=== PATIENT | female | born 2005 | race Caucasian/White ===

== ENCOUNTER 2025-04-14 20:54 | Emergency (ER) | payer OTHER, SELFPAY ==
[2025-04-14 21:00] VITALS: BP 118/68
[2025-04-14 21:27] LABS: Hematocrit 37.6 % (37.0-47.0); Hemoglobin 12.8 g/dL (12.0-16.0); Mean Corp Hgb Conc. 34.0 g/dL (33.0-37.0); Mean Corpuscular Volume 87.4 fL (81.0-99.0); Nucleated Red Blood Cells % 0 %; Platelet Count 267 10^3/uL (130-400); Red Cell Dist. Width 12.9 % (11.5-14.5); Urine Character Clear (Clear)
[2025-04-14 21:39] LABS: HCG, Serum Qualitative Screen Negative
[2025-04-14 21:41] LABS: ALT (SGPT) 19 U/L (0-35); AST (SGOT) 30 U/L (14-36); Albumin 4.6 g/dl (3.5-5.0); Alkaline Phosphatase 72 U/L (38-126); Blood Urea Nitrogen 11 mg/dl (7-17); Calcium 9.4 mg/dl (8.4-10.2); Carbon Dioxide 27 mmol/L (22-30); Chloride 102 mmol/L (98-107); Glucose 88 mg/dl (70-99); Lipase 38 U/L (23-300); Potassium 3.7 mmol/L (3.5-5.1); Sodium 137 mmol/L (135-145); Total Protein 7.6 g/dl (6.3-8.2); eGFR > 60.00
[2025-04-14 21:44] LABS: Urine Red Blood Cell 0-2 /HPF (0-2)
--- NOTE | 2025-04-14 23:30 | ED.GENMED ---
History of Present Illness
General
Chief Complaint: Abdominal Pain
Source: patient
Exam Limitations: none
Time Seen by Provider: 04/14/25 22:30
History of Present Illness
History of Present Illness:
19yoF with no significant past medical history presenting for evaluation of abdominal pain. Patient reports pain in the left side of her abdomen that started this morning. Pain has been constant throughout the day today. Pain is worse with
movement and coughing. Pain started to radiate to her left lower back while in the waiting room. She is also experiencing diarrhea. She denies any urinary symptoms, fevers, vomiting, hematochezia, vaginal discharge, vaginal bleeding. No
suspicious intake, recent travel, or sick contacts. 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 LMP about 1 week ago. No prior abdominal surgeries.
Phy Exam
General Physical Exam
General Presentation: well appearing and no apparent distress
General Skin: warm and dry
General Habitus: normal
General Mental: alert
ENT Exam
ENT Exam: normocephalic
Gastrointestinal Exam
Gastrointestinal Exam: soft, non distended and other (+Tenderness noted to L mid and lower abdomen. Abdomen soft, non-distended. No rebound or guarding.)
Neurological Exam
Neurological Exam: alert
Brittany Coma Scale
Eye Opening: Spontaneous
Verbal Response: Oriented
Motor Response: Obeys Commands
GCS Total Score: 15
Skin Exam
Skin Exam: normal color and warm/dry
Psychiatric Exam
Psychiatric Exam: normal mood/affect
Course
Orders/Labs/Results
Orders:
Orders
04/14/25 21:05
Test Result ONCE
04/14/25 21:14
Complete Blood Count/With Diff Urgent
Comprehensive Metabolic Panel Urgent
HCG, Serum Qualitative Screen Urgent
Lipase Urgent
Urine Microscopic Reflex Cult Urgent
Urine Reflex Culture from UA [Urinalysis Reflex To Culture] Urgent
Date Specimen was Collected: 04/14/25
Time Specimen was Collected: 21:05
Urine Culture Urgent
LUIS Source: U
Specimen Description:
Date Specimen was Collected: 04/14/25
Time Specimen was Collected: 21:05
04/14/25 23:28
Pelvis & Transvaginal US [US Pelvis W Transvag Combined] Urgent
Comment:
Reason For Exam: LLQ pain
Renal & Bladder US [US Renal With Bladder] Urgent
Comment:
Reason For Exam: L flank pain
Abnormal Lab Results
04/14/25
21:14
Urine Ketones 3+ A
(Negative)
Leukocyte Esterase Rfl 1+ A
(Negative)
Urine Bacteria (Reflex) Moderate A
(Negative)
Urine Albumin (Reflex) 2+ A
(Neg - Trace)
04/14/25 21:14
04/14/25 21:14
Vital Signs
Initial and Last Documented VS:
Initial Vital Signs
Temp Pulse Resp BP Pulse Ox
98.0 F 67 18 118/68 100
04/14/25 21:00 04/14/25 21:00 04/14/25 21:00 04/14/25 21:00 04/14/25 21:00
Last Documented Vital Signs
Temp Pulse Resp BP Pulse Ox
98.0 F 67 18 105/65 100
04/14/25 21:00 04/14/25 21:00 04/14/25 21:00 04/14/25 23:37 04/14/25 23:37
MDM/Problems Addressed
Differential Diagnosis Includes:
19yoF here with L sided abd pain that began this morning. Pain worse with movement. Radiates to back. Also c/o diarrhea. VSS. Patient well-appearing no distress. No signs of peritonitis on abdominal exam. Differential diagnosis includes but is
not limited to: Ovarian cyst, kidney stone, musculoskeletal, colitis, splenomegaly, doubt diverticulitis given age
Initial ED plan: Lab work obtained in triage which is unremarkable including normal white count, renal function, LFTs. hCG testing negative. No overt signs of infection on urinalysis. Will check pelvic and renal ultrasounds. She declines
analgesics.
*Pulse Oximetry
SaO2: 100
Oxygen Mode of Delivery: Room air
Patient hypoxic: no
*Critical Care Note
Total Time (30-74mins, 75-104mins- exclusive of procedures): Not Applicable
Update Note
Update Note:
Preliminary [facility] radiology report for ultrasounds are negative for acute findings. Suspect pain is musculoskeletal as it is worse with movement. Will defer CT scan at this time, patient in agreement with this. Supportive care discussed. She
was advised to follow-up with her PCP and ED return precautions reviewed. Patient discharged in stable condition.
ED Attending Note
-
Portions of this chart may have been created with voice recognition software.� Occasional wrong word or��sound alike� substitutions may have occurred due to the inherent limitations of voice recognition software.
Discharge Plan
Departure
Patient Disposition: Home (Routine Discharge)
Date of Disposition: 04/15/25
Time of Disposition: 01:09
Patient with high blood pressure during this ER visit?: No
Discharge Problem:
Left sided abdominal pain
Instructions: Abdominal Pain
Prescriptions:
No Action
No Current Medications
0
Referrals:
NONE,* [Family Provider, Internal Medicine]
Activity Restrictions/Additional Instructions:
Take Tylenol and ibuprofen as needed for pain. Apply heat to affected area.
Please follow-up with your family doctor. Return to the ER with any new or worsening symptoms.
Interventions
Interventions:
*Risk Screen - Suicide Last Done: 04/14/25 21:00
*General Assessment Last Done: 04/14/25 21:00
*Neglect/Abuse Screening Last Done: 04/14/25 21:00
*ED COVID-19 Vaccine History Last Done: 04/14/25 21:00
*ED Influenza Vaccine History Last Done: 04/14/25 21:00
[facility] Fall Risk Assessment Tool Last Done: 04/14/25 23:36
*Nursing Disposition Last Done: 04/15/25 01:12
DZ-Fogdmn-Kdqoetknep Assessment Last Done: 04/14/25 23:40
Discharge Date and Time
Discharge Date/Time: 04/15/25 01:14
Print Language: PASHTO
[2025-04-14 23:35] VITALS: BMI 22.1
[2025-04-14 23:37] VITALS: BP 105/65
== END 2025-04-15 01:14 | disposition home or self-care (01) ==
LOC: EMR 20:54
PROVIDERS: Emergency Medicine; EMERGENCY PHYSICIAN Emergency Medicine
DX: R10.9 Unspecified abdominal pain (principal)
CPT/HCPCS: 99284; 76770; 76830; 76856; 80053; 81003; 81015; 83690; 84703; 85025; 87086